=== PATIENT | male | born 1950 | race African-American/Black ===

== ENCOUNTER 2024-02-01 15:41 | Inpatient (IN) | payer MEDICARE, OTHER ==
[2024-02-01 16:39] VITALS: BMI 25.8
[2024-02-01] MEDS ORDERED: Ondansetron PF 4 MG/2 ML Vial IVP PRN (16:40)
[2024-02-01] MEDS ORDERED: Acetaminophen 325 MG TAB PO SCH (16:45)
[2024-02-01 17:01] LABS: #Basophils Less than 0.03 10x3/uL (0.0-0.2); #Eosinophils Less than 0.03 10x3/uL (0.0-0.7); %Basophils 0.5 % (0.0-1.0); %Eosinophils 0.5 % (0.0-10.0); %Lymphocytes 21.4 % (21.0-51.0); %Monocytes 12.8 % (0.0-10.0); %Neutrophils 64.3 % (42.0-75.0); Hematocrit 40.5 % (42.0-52.0); Hemoglobin 13.1 g/dL (14.0-18.0); Mean Corpuscular HGB CONC 32.3 g/dL (32.0-36.0); Mean Corpuscular Hemoglobin 30.9 pg (27.0-31.0); Mean Corpuscular Volume 95.5 fL (78.0-98.0); Mean Platelet Volume 10.1 fL (7.4-10.4); Platelet Count 162 10x3/uL (130-400); RBC Distribution Width 12.2 % (11.5-14.5); Red Blood Cell (RBC) Count 4.24 mill/uL (4.70-6.10)
[2024-02-01] MEDS: Acetaminophen 325 MG TAB PO SCH (17:08)
[2024-02-01] MEDS: traMADol HCl 50 MG TAB PO SCH (17:08)
[2024-02-01] MEDS: Sodium Chloride 0.9% 1,000 ML IV SCH (17:09)
[2024-02-01 17:15] LABS: INR-International Normal Ratio 1.1; PTT 37.5 sec (22.9-36.1); Prothrombin Time 13.9 sec (12.0-14.7)
[2024-02-01 17:21] LABS: ALT (SGPT) 11 U/L (8-55); AST (SGOT) 30 U/L (5-34); Albumin 3.6 g/dL (3.4-4.8); Alkaline Phosphatase 83 U/L (40-110); Anion Gap 16 mmol/L (10-20); BUN (Urea Nitrogen) 19 mg/dL (8.4-25.7); Bilirubin, Total 1.2 mg/dL (0.2-1.2); Calc. Creatinine Clearance 97 mL/min (70-130); Calcium 8.8 mg/dL (7.8-10.44); Carbon Dioxide 17 mmol/L (23-31); Chloride 102 mmol/L (98-107); Estimated GFR 84; Globulin 4.1 g/dL (2.4-3.5); Glucose 89 mg/dL (83-110); Potassium 4.4 mmol/L (3.5-5.1); Protein, Total 7.7 g/dL (5.8-8.1); Sodium 131 mmol/L (136-145)
[2024-02-01 17:27] LABS: Troponin I Less than 0.010 ng/mL (< 0.028)
[2024-02-01] MEDS: Famotidine/PF 20 mg/2ml Vial SLOW IVP SCH (21:02)
[2024-02-02] MEDS: Morphine 2 MG/ML VIAL SLOW IVP PRN (04:46)
[2024-02-02 05:27] LABS: #Basophils Less than 0.03 10x3/uL (0.0-0.2); %Basophils 0.5 % (0.0-1.0); %Eosinophils 1.4 % (0.0-10.0); %Lymphocytes 22.6 % (21.0-51.0); %Monocytes 12.5 % (0.0-10.0); %Neutrophils 62.5 % (42.0-75.0); Hematocrit 36.6 % (42.0-52.0); Hemoglobin 12.2 g/dL (14.0-18.0); Mean Corpuscular HGB CONC 33.3 g/dL (32.0-36.0); Mean Corpuscular Hemoglobin 30.7 pg (27.0-31.0); Mean Platelet Volume 10.6 fL (7.4-10.4); Platelet Count 157 10x3/uL (130-400); Red Blood Cell (RBC) Count 3.98 mill/uL (4.70-6.10)
[2024-02-02 05:43] LABS: ALT (SGPT) 9 U/L (8-55); AST (SGOT) 26 U/L (5-34); Albumin 3.3 g/dL (3.4-4.8); Alkaline Phosphatase 82 U/L (40-110); Anion Gap 14 mmol/L (10-20); BUN (Urea Nitrogen) 14 mg/dL (8.4-25.7); Bilirubin, Total 1.2 mg/dL (0.2-1.2); Calc. Creatinine Clearance 110 mL/min (70-130); Calcium 8.6 mg/dL (7.8-10.44); Carbon Dioxide 19 mmol/L (23-31); Chloride 102 mmol/L (98-107); Estimated GFR 92; Globulin 3.9 g/dL (2.4-3.5); Glucose 93 mg/dL (83-110); Protein, Total 7.2 g/dL (5.8-8.1); Sodium 131 mmol/L (136-145)
[2024-02-02] MEDS ORDERED: CEFAZOLIN 2 GM in Sodium Chloride 0.9% 100 ML IVPB SCH (07:45)
[2024-02-02] MEDS: Metoprolol Tartrate 25 MG TAB PO SCH (08:17)
[2024-02-02] MEDS: Sacubitril 24MG/Valsartan 26 MG TAB PO SCH (09:59)
[2024-02-02] MEDS: Gabapentin 300 MG CAP PO SCH (09:59)
[2024-02-02] MEDS: Finasteride 5 MG TAB PO SCH (09:59)
[2024-02-02] MEDS: Rosuvastatin 10 MG TAB PO SCH (09:59)
[2024-02-02] MEDS ORDERED: fentaNYL 50 mcg/mL 1 mL Vial ONE ×2 (13:06→13:54)
[2024-02-02] MEDS ORDERED: Glycopyrrolate 0.2 MG/ML 5 ML SYRINGE ONE (13:54)
[2024-02-02] MEDS ORDERED: PHENYLEPHRINE-NS 100 MCG/ML 10 ML SYRINGE ONE (13:54)
[2024-02-02] MEDS ORDERED: Lidocaine 1% PF 5 ML VIAL ONE (13:54)
[2024-02-02] MEDS ORDERED: Rocuronium Bromide 10 MG/ML (10ML VIAL) ONE (13:54)
[2024-02-02] MEDS ORDERED: PROPOFOL 20 ML ONE (13:54)
[2024-02-02] MEDS ORDERED: CEFAZOLIN 2 GM VIAL ONE (14:01)
[2024-02-02] MEDS ORDERED: HYDROmorphone 2 MG/ML VIAL ONE (14:37)
[2024-02-02] MEDS ORDERED: Ondansetron PF 4 MG/2 ML Vial ONE (14:54)
[2024-02-02] MEDS ORDERED: SUGAMMADEX SODIUM 200 MG/2 ML VIAL ONE (14:54)
[2024-02-02] MEDS: Morphine 4 MG/ML VIAL SLOW IVP PRN (16:35)
[2024-02-02] MEDS: Tamsulosin HCl 0.4 MG CAP PO SCH (21:42)
[2024-02-02] MEDS: CEFAZOLIN 2 GM in Sodium Chloride 0.9% 100 ML IVPB SCH (21:56)
[2024-02-03 06:11] LABS: Anion Gap 14 mmol/L (10-20); BUN (Urea Nitrogen) 10 mg/dL (8.4-25.7); Calc. Creatinine Clearance 113 mL/min (70-130); Calcium 8.4 mg/dL (7.8-10.44); Carbon Dioxide 23 mmol/L (23-31); Chloride 100 mmol/L (98-107); Estimated GFR 93; Glucose 103 mg/dL (83-110); Magnesium 2.4 mg/dL (1.6-2.6); Potassium 3.8 mmol/L (3.5-5.1); Sodium 133 mmol/L (136-145)
[2024-02-03] MEDS: Enoxaparin 40 MG (0.4 mL) SYRINGE SC SCH (09:05)
[2024-02-03] MEDS: Pantoprazole DR 40 MG TAB PO SCH (09:10)
[2024-02-03] MEDS: Methocarbamol 500 MG TAB PO PRN (12:11)
[2024-02-03] MEDS: HYDROcodone/Acetaminophen 5/325 mg Tablet PO PRN (13:24)
[2024-02-03] MEDS: Senokot S 8.6-50 MG TAB PO SCH (20:32)
[2024-02-04] MEDS: Colchicine 0.6 MG TAB PO SCH (11:04)
[2024-02-04] MEDS: traMADol HCl 50 MG TAB PO PRN (11:05)
[2024-02-04 17:10] VITALS: BP 104/65; TEMP 97.6
[2024-02-04] MEDS: FLU (Fluad Triv) TS24-25 (65UP)/MF59C/PF 45 MCG/0.5 ML Syringe IM ONE (17:42)
[2024-02-04] MEDS ORDERED: Colchicine 0.6 MG TAB PO SCH (21:00)
== END 2024-02-04 19:00 | DRG 481 ==
LOC: SURG B 15:41
PROVIDERS: ADMIT Surgery; ATTEND Surgery
PROC: 0QS606Z Reposition Right Upper Femur with Intramedullary Internal Fixation Device, Open Approach (ICD-10-PCS; principal; 2024-02-02)
DX: S72.141A Displaced intertrochanteric fracture of right femur, initial encounter for closed fracture (principal); I50.22 Chronic systolic (congestive) heart failure; E78.5 Hyperlipidemia, unspecified; G89.29 Other chronic pain; F17.210 Nicotine dependence, cigarettes, uncomplicated; M54.9 Dorsalgia, unspecified; W18.30XA Fall on same level, unspecified, initial encounter; I11.0 Hypertensive heart disease with heart failure; N40.0 Benign prostatic hyperplasia without lower urinary tract symptoms; Z95.0 Presence of cardiac pacemaker; Z79.899 Other long term (current) drug therapy
CPT/HCPCS: 36415; 80048; 80053; 83735; 83880; 85025; 85610; 85730; 86850; 86900; 86901; 93005; 93010; 93306; C1713; G0390; J1650; J2272; J2405; J2704; J3010; J3490; J7030